=== PATIENT | male | born 1965 | race Caucasian/White ===

== ENCOUNTER 2017-01-17 09:38 | Emergency (ER) | payer BC ==
[~2017-01-17] VITALS: Ht 185.4 cm; Wt 90.9 kg
[2017-01-17] MEDS ORDERED: GLUCOPHAGE XR500 M2 PO (09:43)
[2017-01-17] MEDS ORDERED: LISINOPRIL10 MG (09:44)
[2017-01-17] MEDS ORDERED: SIMVASTATIN5 M1 PO (09:44)
[2017-01-17] MEDS ORDERED: CEPHALEXIN500 M1 PO (10:27)
[2017-01-17 11:14] VITALS: BP 148/94
== END 2017-01-17 11:05 | disposition home or self-care (01) ==
LOC: ED 09:38
DX: S61.442A Puncture wound with foreign body of left hand, initial encounter (principal); W22.8XXA Striking against or struck by other objects, initial encounter; Y92.828 Other wilderness area as the place of occurrence of the external cause; I10 Essential (primary) hypertension; E11.9 Type 2 diabetes mellitus without complications; Z79.84 Long term (current) use of oral hypoglycemic drugs
CPT/HCPCS: 90715

== ENCOUNTER 2018-07-18 13:53 | Outpatient (RCR) | payer BC ==
[~2018-07-18 13:53] MED LIST: CEPHALEXIN500 M1 PO; GLUCOPHAGE XR500 M2 PO; LISINOPRIL10 MG; SIMVASTATIN5 M1 PO
== END 2018-08-19 15:57 | disposition home or self-care (01) ==
LOC: CARDREHAB 13:53
DX: Z48.812 Encounter for surgical aftercare following surgery on the circulatory system (principal); Z95.2 Presence of prosthetic heart valve; Z95.1 Presence of aortocoronary bypass graft

== ENCOUNTER 2021-12-26 10:29 | Emergency (ER) | payer OTHER ==
[~2021-12-26] VITALS: Ht 182.9 cm; Wt 90.9 kg
[2021-12-26] MEDS ORDERED: AMLODIPINE BESYL5 MG PO (10:50)
[2021-12-26] MEDS ORDERED: ATORVASTATIN CA40 MG PO (10:51)
[2021-12-26] MEDS ORDERED: WARFARIN SOD2 MG PO (10:51)
[2021-12-26] MEDS ORDERED: METFORMIN ER500 MG PO (10:51)
[2021-12-26] MEDS ORDERED: FARXIGA5 MG PO (10:51)
[2021-12-26] MEDS ORDERED: LISINOPRIL10 MG PO (10:52)
[2021-12-26 11:18] LABS: ALBUMIN 4.8 g/dL (3.5-5.0)
[2021-12-26 11:19] LABS: BASO # 0.04 K/mm3 (0.02-0.10); EOS # 0.09 K/mm3 (0.04-0.40); EOS % 1.6 % (0.0-4.0); HEMATOCRIT 48.4 % (42.0-52.0); HEMOGLOBIN 16.4 g/dL (13.5-18.0); LYMPH# 0.71 K/mm3 (1.50-4.00); MEAN CELL VOLUME 91 fl (78-100); MEAN CORPUSCULAR HEMOGLOBIN 31 pg (27-31); MEAN CORPUSCULAR HGB CONC 34 g/dL (33-37); MEAN PLATELET VOLUME 11.6 fl (7.4-10.4); MONO # 0.38 K/mm3 (0.20-0.80); NEU # 4.45 K/mm3 (1.40-6.50); PLATELET COUNT 59 K/mm3 (130-400); POTASSIUM 4.4 mmol/L (3.5-5.1); RED BLOOD COUNT 5.34 M/mm3 (4.20-5.60); RED CELL DISTRIBUTION WIDTH 12.7 % (11.5-14.5); SODIUM 138 mmol/L (136-145); WHITE BLOOD COUNT 5.7 K/mm3 (4.8-10.8)
[2021-12-26 11:21] LABS: GLUCOSE 133 mg/dL (75-110); TOTAL PROTEIN 7.7 g/dL (6.4-8.3)
[2021-12-26 11:22] LABS: CARBON DIOXIDE 20 mmol/L (22-29)
[2021-12-26 11:23] LABS: TOTAL BILIRUBIN 0.6 mg/dL (0.2-1.2)
[2021-12-26 11:26] LABS: AST-SGOT 17 U/L (5-34)
[2021-12-26 11:28] LABS: ALT/SGPT 22 U/L (0-55)
[2021-12-26 11:31] LABS: ALCOHOL IN-HOUSE < 10 mg/dL (<10)
[2021-12-26 11:36] LABS: PROTHROMBIN TIME 30.1 SECONDS (9.0-12.0)
[2021-12-26 11:41] LABS: URINE APPEARANCE CLEAR; URINE BILIRUBIN NEGATIVE (NEGATIVE); URINE BLOOD TRACE (NEGATIVE); URINE COLOR YELLOW; URINE KETONE NEGATIVE (NEGATIVE); URINE LEUKOCYTE ESTERASE NEGATIVE (NEGATIVE); URINE NITRATE NEGATIVE (NEGATIVE); URINE PROTEIN(semi-quant) TRACE (NEGATIVE); URINE UROBILINOGEN NORMAL (NORMAL); URINE WBC 0-1 /hpf (0-3)
[2021-12-26 11:51] VITALS: BP 127/83
== END 2021-12-26 11:55 | disposition home or self-care (01) ==
LOC: ED 10:29
PROVIDERS: Physician Assistant
DX: M54.50 Low back pain, unspecified (principal); V59.9XXA Occupant (driver) (passenger) of pick-up truck or van injured in unspecified traffic accident, initial encounter; Y92.410 Unspecified street and highway as the place of occurrence of the external cause